=== PATIENT | male | born 1980 | race African-American/Black ===

== ENCOUNTER 2017-06-23 04:38 | Emergency (ER) | payer MEDICAID ==
--- NOTE | 2017-06-23 04:47 | EDPHY ---
H & P Source: Patient, Police Time Seen by Provider: 06/23/17 04:42 HPI/ROS: HPI CHIEF COMPLAINT: M1 hold by police, From crisis Center HISTORY OF PRESENT ILLNESS: Patient is a 29-year-old male, who presents emergency room on M1 by [place] [employer], he was apparently at the crisis Center and appear to be gravely disable could not care for himself and had some paranoia. The evaluate her at the crisis Center placed him on M1 hold. The patient reports to me that he has some psychiatric history but not will not divulge. He does take Zyprexa. Upon arrival to the emergency room is resting comfortably has no complaints. He denies wanting to hurt himself or anybody else. Patient recently did methamphetamine. Past Medical History: Unknown psychiatric history possible schizophrenia. Supposed to take Zyprexa. Past Surgical History: No recent surgery Social History: patient states that he resides in [place] but recently left [place] to come to [place] last night. Tobacco, marijuana, and recently did methamphetamine. Family History: Noncontributory ROS REVIEW OF SYSTEMS: A comprehensive 10 point review of systems is otherwise negative aside from elements mentioned in the history of present illness. Exam Constitutional nontoxic, triage nursing summary reviewed, vital signs reviewed , awake/alert. Eyes normal conjunctivae and sclera, EOMI, PERRLA. HENT normal inspection, atraumatic, moist mucus membranes, no epistaxis, neck supple/ no meningismus, no raccoon eyes. Respiratory clear to auscultation bilaterally, normal breath sounds, no respiratory distress, no wheezing. Cardiovascular rate normal, regular rhythm, no murmur, no edema, distal pulses normal. Gastrointestinal soft, non-tender, no rebound, no guarding, normal bowel sounds, no distension, no pulsatile mass. Genitourinary no CVA tenderness. Musculoskeletal no midline vertebral tenderness, full range of motion, no calf swelling, no tenderness of extremities, no meningismus, good pulses, neurovascularly intact. Skin pink, warm, & dry, no rash, skin atraumatic. Neurologic awake, alert and oriented x 3, AAOx3, moves all 4 extremities equally, motor intact, sensory intact, CN II-XII intact, normal cerebellar, normal vision, normal speech. Psychiatric normal mood/affect. Heme/Lymph/Immune no lymphadenopathy. Differential Diagnosis: Includes but is not limited to in a particular order mood disorder, gravely disable, bipolar disorder, schizophrenia, substance abuse , polysubstance abuse Medical Decision Making: Blood draw for medical clearance he is on M1 hold prior to arrival by crisis walk-in Center. Re-evaluation: Patient will need blood draw for medical clearance and then mental health evaluation. 0710: Patient signed over to Dr. Huggins. Pending Placement. (Sacha Magallanes) Constitutional: Initial Vital Signs Temperature (C) 36.7 C 06/23/17 04:45 Heart Rate 84 06/23/17 04:45 Respiratory Rate 18 06/23/17 04:45 Blood Pressure 123/98 H 06/23/17 04:45 O2 Sat (%) 97 06/23/17 04:45 O2 Delivery Mode Room Air Allergies/Adverse Reactions: No Known Allergies Allergy (Unverified 06/23/17 04:46) Home Medications: Medication Instructions Recorded Seroquel 06/23/17 Zyprexa 06/23/17 Medical Decision Making ED Course/Re-evaluation: Patient has remained stable on my shift. Care to Dr. Orellana at 3:30 p.m. ( Augustine Cotton) 0637: No acute events overnight. 0700: Side Dr. Cotton shift change. Patient pending mental evaluation. ( Sacha Magallanes) Other Provider: I assumed care of this patient from Dr. Cotton at approximately 3:00 p.m. On . He underwent mental health evaluation and at 7:20 p.m. I spoke with the teacher theater arts. He continues to be delusional. Placement at a crisis stabilization unit is being sought. (Kelly Orellana) - Data Points Laboratory Results: Laboratory Results 06/23/17 05:00 06/23/17 05:00 Departure - Departure Disposition: Acute Care Hospital Not [facility] Clinical Impression: Methamphetamine abuse Condition: Good Referrals: NONE *PRIMARY CARE P,. [Primary Care Provider] - As per Instructions
[2017-06-23 05:14] LABS: PLATELET COUNT 269 10^3/uL (150-400)
[2017-06-24 13:39] VITALS: BP 140/82
== END 2017-06-24 13:29 | disposition short-term general hospital (02) ==
DX: F15.10 Other stimulant abuse, uncomplicated (principal)
CPT/HCPCS: 80305; 80307; G0480